=== PATIENT | male | born 1965 | race Caucasian/White ===

== ENCOUNTER 2017-08-29 16:35 | Day surgery (SDC) | payer BC, OTHER ==
[2017-08-29] MEDS ORDERED: Sodium Chloride 0.9% 10 ML Syringe FLUSH PRN (16:50)
[2017-08-29] MEDS ORDERED: Sodium Chloride 0.9% 1,000 ML IV STA (16:52)
--- NOTE | 2017-08-29 16:56 | EDM.PDOC ---
ED HPI GENERAL MEDICAL PROBLEM - General Stated Complaint: POSSIBLE RUPTURED HERNIA Time Seen by Provider: 08/29/17 16:35 Source of Information: Reports: Patient, EMS Notes Reviewed, Family History Limitations: Reports: No Limitations - History of Present Illness INITIAL COMMENTS - FREE TEXT/NARRATIVE: 51 y.o.w.m -morbid obese, came to the ed with his SO due to abd, wall pain, H/O umbilical hernia. Pt is extreme. Pt was seen by a surgeon in the past for some. However, the pain got suddenly worse today. any movement hurts. No N/V/D.BP 116/ 76 Pulse ox 96% on RA pulse 81 RR 20 Temp 36.8. Pt was signed out to Dr. Miramontes at [address] results Onset Date: 08/29/17 Onset Time: 06:00 Duration: Hour(s): Location: Reports: Abdomen Quality: Reports: Ache, Burning, Dull, Pressure, Throbbing Severity: Moderate Improves with: Reports: Rest Worsens with: Reports: Movement Context: Reports: Other (umbilical hernia) Associated Symptoms: Reports: Weakness Abdomen Pain Score (Numeric/FACES): 3 - Related Data Allergies Allergy/AdvReac Type Severity Reaction Status Date / Time No Known Allergies Allergy Verified 10/26/13 21:16 Home Meds: Home Meds Simvastatin [Zocor] 20 mg PO BEDTIME 01/28/16 [History] buPROPion [Wellbutrin SR] 150 mg PO DAILY 01/28/16 [History] metFORMIN [Glucophage] 850 mg PO BIDMEALS 01/28/16 [History] Hydrocodone/Acetaminophen [Hydrocodon-Acetaminophen 5-325] 1 - 2 tab PO Q4HR PRN #20 tablet 08/29/17 [Rx] Past Medical History HEENT History: Reports: Impaired Vision Cardiovascular History: Reports: High Cholesterol Respiratory History: Reports: Sleep Apnea Gastrointestinal History: Reports: Other (See Below) Other Gastrointestinal History: OCCASIONAL HEARTBURN Genitourinary History: Reports: None 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 Neurological History: Reports: Migraines Psychiatric History: Reports: Other (See Below) Other Psychiatric History: MEDICATES FOR IRRITABILITY Endocrine/Metabolic History: Reports: Diabetes, Type II, Obesity/BMI 30+ Hematologic History: Reports: None Immunologic History: Reports: None Oncologic (Cancer) History: Reports: None Dermatologic History: Reports: None - Infectious Disease History Infectious Disease History: Reports: Chicken Pox - Past Surgical History Head Surgeries/Procedures: Reports: Other (See Below) Social & Family History - Family History Other HEENT Family History: SEE HX ED ROS GENERAL - Review of Systems Review Of Systems: Unable To Obtain ED EXAM, GI/ABD - Physical Exam Exam: See Below Exam Limited By: No Limitations General Appearance: Obese (morbid obese) Eyes: Bilateral: Normal Appearance Ears: Normal External Exam Nose: Normal Inspection Throat/Mouth: Normal Inspection, Normal Lips Head: Atraumatic, Normocephalic Neck: Normal Inspection, Supple, Non-Tender Respiratory/Chest: No Respiratory Distress, Lungs Clear, Normal Breath Sounds Cardiovascular: Normal Peripheral Pulses, Regular Rate, Rhythm, No Edema GI/Abdominal Exam: Tender, Hernia (umbilical hernai), Other (Male) Exam: No Hernia (abd. wall hernia) Rectal (Males) Exam: Deferred Back Exam: Normal Inspection, Full Range of Motion Extremities: Normal Inspection, Normal Range of Motion, Non-Tender Neurological: Alert, Oriented, CN II-XII Intact, Normal Cognition, No Motor/ Sensory Deficits Psychiatric: Normal Affect Skin Exam: Warm, Dry, Intact, Normal Color Lymphatic: No Adenopathy Course - Vital Signs Text/Narrative:: 51 y.o.w.m -morbid obese, came to the ed with his SO due to abd, wall pain, H/O umbilical hernia. Pt is extreme. Pt was seen by a surgeon in the past for some. However, the pain got suddenly worse today. any movement hurts. No N/V/D.BP 116/ 76 Pulse ox 96% on RA pulse 81 RR 20 Temp 36.8. Pt was signed out to Dr. Miramontes at [address] results Imaging: Umbilical Fat hernia Labs: WBC 14.2 H/H Nl GFR > 60 Na/K nl Impression: Umbilical Fat hernia, Morbid obesity Please Dr. Miramontes's note Last Recorded V/S: Last Vital Signs Temp 36.5 C 08/30/17 01:20 Pulse 78 08/30/17 01:20 Resp 16 08/30/17 01:20 BP 118/70 08/30/17 01:20 Pulse Ox 96 08/30/17 01:20 - Orders/Labs/Meds Labs: Laboratory Tests 08/29/17 08/29/17 Range/Units 17:05 17:05 WBC 14.2 H (4.5-12.0) X10-3/uL RBC 5.36 (4.30-5.75) x10(6)uL Hgb 15.2 (11.5-15.5) g/dL Hct 45.7 (30.0-51.3) % MCV 85.4 (80-96) fL MCH 28.3 (27.7-33.6) pg MCHC 33.2 (32.2-35.4) g/dL RDW 12.7 (11.5-15.5) % Plt Count 262 (125-369) X10(3)uL MPV 8.5 (7.4-10.4) fL Neut % (Auto) 71.0 (46-82) % Lymph % (Auto) 20.7 (13-37) % Frontier % (Auto) 7.1 (4-12) % Eos % (Auto) 1 (1.0-5.0) % Baso % (Auto) 0 (0-2) % Neut # (Auto) 10.2 H (1.6-8.3) # Lymph # (Auto) 2.9 (0.6-5.0) # Frontier # (Auto) 1.0 (0.0-1.3) # Eos # (Auto) 0.1 (0.0-0.8) # Baso # (Auto) 0.0 (0.0-0.2) # Sodium 136 (135-145) mmol/L Potassium 3.8 (3.5-5.3) mmol/L Chloride 100 (100-110) mmol/L Carbon Dioxide 24 (21-32) mmol/L BUN 27 H (7-18) mg/dL Creatinine 1.0 (0.70-1.30) mg/dL Est Cr Clr Drug Dosing TNP Estimated GFR (MDRD) > 60 (>60) BUN/Creatinine Ratio 27.0 H (9-20) Glucose 131 H (80-116) mg/dL Calcium 9.5 (8.6-10.2) mg/dL Meds: Medications Discontinued Medications Generic Name Dose Route Start Last Admin Trade Name Freq PRN Reason Stop Dose Admin Hydrocodone Bitart/Acetaminophen 1 tab 08/29/17 23:41 08/30/17 00:04 [place] 325-5 Mg PO 1 tab Q4H PRN Administration Pain Hydrocodone Bitart/Acetaminophen 8 tab 08/29/17 21:58 [place] 325-5 Mg PO 08/29/17 21:59 .STK-MED ONE Bupivacaine HCl 20 ml 08/29/17 20:47 08/29/17 20:47 Marcaine 0.5% INJECT 08/29/17 20:48 20 ml .STK-MED ONE Administration Cefazolin Sodium 3 gm 08/29/17 20:20 Ancef IV 08/29/17 20:21 .STK-MED ONE Diatrizoate Meglum/Diatrizoate Sod 30 ml 08/29/17 17:45 08/29/17 17:52 Gastrografin 37% PO 30 ml . DIRECTED MIGUE Administration Fentanyl 200 mcg 08/29/17 20:20 Sublimaze IV 08/29/17 20:21 .STK-MED ONE Glycopyrrolate 0.4 mg 08/29/17 20:20 Robinul IV 08/29/17 20:21 .STK-MED ONE Hydromorphone HCl 1 mg 08/29/17 17:19 08/29/17 17:39 Dilaudid IVPUSH 08/29/17 17:20 1 mg ONETIME ONE Administration Sodium Chloride 1,000 mls @ 125 mls/hr 08/29/17 16:52 08/29/17 17:15 Normal Saline IV 08/30/17 00:51 125 mls/hr ASDIRECTED STA Administration Lactated Ringer's 1,000 mls @ as directed 08/29/17 20:20 Ringers, Lactated IV 08/29/17 20:21 .STK-MED ONE Iopamidol 150 ml 08/29/17 17:42 08/29/17 17:52 Isovue-370 (76%) IV 08/29/17 17:43 150 ml ONETIME ONE Administration Ketorolac Tromethamine 30 mg 08/29/17 20:20 Toradol IVPUSH 08/29/17 20:21 .STK-MED ONE Midazolam HCl 2 mg 08/29/17 20:20 Versed 1 Mg/Ml IV 08/29/17 20:21 .STK-MED ONE Neostigmine Methylsulfate 3 mg 08/29/17 20:20 Neostigmine Methylsulfate IVPUSH 08/29/17 20:21 .STK-MED ONE Ondansetron HCl 4 mg 08/29/17 20:20 Zofran IVPUSH 08/29/17 20:21 .STK-MED ONE Propofol 200 mg 08/29/17 20:20 Diprivan 20 Ml IV 08/29/17 20:21 .STK-MED ONE Rocuronium Rifton 50 mg 08/29/17 20:20 Zemuron IV 08/29/17 20:21 .STK-MED ONE Sodium Chloride 10 ml 08/29/17 16:50 Saline Flush FLUSH ASDIRECTED PRN Keep Vein Open Succinylcholine Chloride 120 mg 08/29/17 20:20 Quelicin IV 08/29/17 20:21 .STK-MED ONE Departure - Departure Time of Disposition: 19:00 Disposition: Admitted As Inpatient 66 Condition: Fair Clinical Impression: Umbilical hernia - Discharge Information
[2017-08-29] MEDS ORDERED: HYDROmorphone 2 MG/ML SDV IVPUSH ONE (17:19)
[2017-08-29] MEDS ORDERED: Iopamidol 755 MG/ML 150 ML Bottle IV ONE (17:42)
[2017-08-29] MEDS ORDERED: Diatrizoate Meglumine/Diatrizoate Sodium 37% 30 ML Bottle PO SCH (17:45)
[2017-08-29] MEDS ORDERED: Ondansetron 4 MG/2 ML SDV IVPUSH ONE (20:20)
[2017-08-29] MEDS ORDERED: fentaNYL 100 MCG/2 ML SDV IV ONE (20:20)
[2017-08-29] MEDS ORDERED: Succinylcholine 200 MG/10 ML MDV IV ONE (20:20)
[2017-08-29] MEDS ORDERED: Neostigmine Methylsulfate 10 MG/10 ML MDV IVPUSH ONE (20:20)
[2017-08-29] MEDS ORDERED: Lactated Ringers 1,000 ML IV ONE (20:20)
[2017-08-29] MEDS ORDERED: Propofol 200 MG/20 ML SDV IV ONE (20:20)
[2017-08-29] MEDS ORDERED: Glycopyrrolate 0.2 MG/ML 5 ML MDV IV ONE (20:20)
[2017-08-29] MEDS ORDERED: Ketorolac 30 MG/ML SDV IVPUSH ONE (20:20)
[2017-08-29] MEDS ORDERED: ceFAZolin 1 GM Vial IV ONE (20:20)
[2017-08-29] MEDS ORDERED: Midazolam 1 MG/ML 2 ML SDV IV ONE (20:20)
[2017-08-29] MEDS ORDERED: Rocuronium 100 MG/10 ML MDV IV ONE (20:20)
[2017-08-29] MEDS ORDERED: Bupivacaine 0.5% 30 ML SDV INJECT ONE (20:47)
--- NOTE | 2017-08-29 21:12 | HP ---
ADMISSION DATE: 08/29/2017 EMERGENCY ROOM CONSULT HISTORY AND PHYSICAL HISTORY OF PRESENT ILLNESS: This 51-year-old male presented to the emergency room after developing abdominal pain at approximately 1500 hours today while at work. He noted pain in the area of the umbilicus. It had continued to be a constant gradually increasing pain, which prompted his presentation. The patient has for several years noted a bulge at the level of his umbilicus, although it has not been symptomatic before this. The pain that he experiences today is in this bulge, which he thinks is perhaps a little larger and is definitely more firm than it normally is. The patient has not had any nausea or vomiting. He has been evaluated in the emergency room, with laboratory studies showing a slightly elevated serum white blood cell count of 14,200, normal hemoglobin, normal sodium and potassium, and a glucose of 131. The patient also underwent a CT scan of the abdomen. This was interpreted as showing an umbilical hernia containing fat, with no indication of bowel involvement. Diverticulosis and a small renal stone were also noted. PAST MEDICAL HISTORY: Shows no previous surgery, specifically no previous abdominal surgery. He does carry diagnoses of diabetes and hyperlipidemia. CURRENT MEDICATIONS: Include: 1. Metformin 850 mg b.i.d. 2. Wellbutrin 150 mg daily. 3. Zocor 20 mg daily. HABITS: He does not smoke and has not used alcohol to excess. FAMILY HISTORY: Negative for known anesthetic complications or bleeding disorders. SOCIAL HISTORY: The patient is . 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 SYSTEM REVIEW: He has noticed a slight increase in phlegm over the last week but generally has not noted any severe cough, cold, or sore throat symptoms. He has no chest pain or palpitations. He says his appetite has recently been good. He has been trying to lose weight, estimating a loss of 30 to 40 pounds in the last few months. He denies any recent extremity swelling or unusual pain. PHYSICAL EXAMINATION: VITAL SIGNS: Weight is 294 pounds, blood pressure is 140/90, and pulse is 98. GENERAL: The patient is a somewhat ill-appearing male, although he is in no acute distress. HEAD: Normocephalic. EYES: No scleral icterus. NECK: No cervical masses. HEART: Regular, without murmur. LUNGS: Clear. Breath sounds are equal. There is no wheezing. ABDOMEN: Soft. He has a moderate-sized bulge at the level of the umbilicus, which is firm and tender to even light palpation. No other abdominal masses are noted. The patient does have a mild degree of direct tenderness in the right upper quadrant. There is no guarding. EXTREMITIES: Show no calf tenderness or ankle edema. IMPRESSION: 1. Incarcerated umbilical hernia. 2. Diabetes. 3. Hyperlipidemia. 4. Obesity. RECOMMENDATIONS: I advised urgent surgical exploration for a repair of his incarcerated umbilical hernia. I discussed this carefully with the patient and his ; reviewing the indications, risks, and possible complications. We discussed the possible need for use of mesh in the repair, and we also discussed the expected postop work restrictions. Alternatives to immediate surgery were also reviewed. His questions were answered. He appears to understand, and he agrees to proceed. /[id number] CARY/JAKE
[2017-08-29] MEDS ORDERED: Acetaminophen/HYDROcodone 325-5 MG Tab PO ONE (21:58)
--- NOTE | 2017-08-29 22:04 | PCM.OPNOTE ---
- General Post-Op/Procedure Note Date of Surgery/Procedure: 08/29/17 Operative Procedure(s): Repair of Incarcerated Umbilical Hernia with partial Omentectomy Findings: Moderate sized umbilical hernia with large amount of omentum incarcerated although not ischemic Pre Op Diagnosis: Incarcerated Umbilical Hernia Post-Op Diagnosis: Same Anesthesia Technique: General ET Tube Primary Surgeon: Jitendra Del Castillo Pathology: Umbilical hernia sac and contents Output, Urine Amount: 0 EBL in mLs: 25 Complications: None Condition: Good
--- NOTE | 2017-08-29 23:08 | OR ---
DATE OF OPERATION: 08/29/2017 SURGEON: Jitendra Del Castillo MD PREOPERATIVE DIAGNOSIS: Incarcerated umbilical hernia. POSTOPERATIVE DIAGNOSIS: Incarcerated umbilical hernia. OPERATIONS PERFORMED: 1. Repair of an incarcerated umbilical hernia. 2. Partial omentectomy. INDICATIONS FOR SURGERY: This 51-year-old male presented to the emergency room with a several-hour history of progressive pain at the level of the umbilicus. Physical findings and CT scan were consistent with an incarcerated umbilical hernia, and he comes for an urgent surgical repair. FINDINGS: The patient had a moderate-sized umbilical hernia defect approximately 4 cm in length. Through this was incarcerated a large amount of omentum. There were some adhesions of the omentum to the hernia sac, but the omentum was not ischemic and, other than being mildly congested, appeared normal. The surrounding muscle tissue appeared solid. PROCEDURE IN DETAIL: The patient was taken to the operating room. He was given general endotracheal anesthesia, and the abdomen was sterilely prepped and draped. After infiltrating the skin with Marcaine, a curvilinear transverse incision was made just below the umbilicus. Dissection proceeded down onto the hernia sac, and using careful blunt and sharp dissection, the hernia sac was from the surrounding subcutaneous tissue and also dissected off the overlying skin. The hernia sac was opened and found to contain omental fat. This was exposed down to the level of the neck of the hernia. There was a large amount of omentum protruding through the defect, which would not readily be able to be reduced, and the omentum that was protruding through the hernia sac was then amputated above multiple clamps, with ties of 0 Vicryl used to control the vascular pedicles. The excised portion of the omentum was removed, and the small remaining bit of omentum was able to be reduced after freeing some adhesions to the peritoneum. The hernia sac was then excised circumferentially at the level of the fascia with cautery. The fascial edge was exposed and the area carefully examined, finding no other defects in this region and good- quality fascia surrounding the hernia defect. The hernia defect was then closed in a transverse orientation using interrupted #1 Prolene in a Smead-Herrera suturing technique. This then created a secure and complete closure of the hernia. Examination showed no sign of any complication. The wound was then irrigated with saline, and the skin of the umbilicus was tacked down to the underlying fascia with 2-0 Vicryl. This was then used to reapproximate the subcutaneous tissue, and the skin was closed with a running 4-0 Vicryl subcuticular stitch, Steri-Strips, and Benzoin. Antibiotic ointment and a sterile pressure dressing were placed. The patient was then awakened, extubated, and taken from the operating room in satisfactory condition. ESTIMATED BLOOD LOSS: 25 mL. COMPLICATIONS: None. PROGNOSIS: Good. /[id number] CARY/MODL
[2017-08-29] MEDS ORDERED: Acetaminophen/HYDROcodone 325-5 MG Tab PO PRN (23:41)
[2017-08-30 02:22] VITALS: BP 118/70
--- NOTE | 2017-08-31 12:36 | PCM.SN ---
- Free Text/Narrative Note: Late entry: 08/29/17 Fentanyl 100mcg IV at 2021 100mg mcg given at 2034 and versed 2mg IV given at 2021.
== END 2017-08-30 01:40 | disposition home or self-care (01) ==
LOC: FB.ED 16:35 → FB.SDS 19:51 → FB.MS 22:48 → FB.SDS 08-30 01:40
PROVIDERS: ATTEND Surgery
DX: K42.0 Umbilical hernia with obstruction, without gangrene (principal); E11.9 Type 2 diabetes mellitus without complications; E66.9 Obesity, unspecified; E78.5 Hyperlipidemia, unspecified; Z79.84 Long term (current) use of oral hypoglycemic drugs; Z79.899 Other long term (current) drug therapy
CPT/HCPCS: 36415; 49587; 74177; 80048; 85025; 88302; 96361; 96374; 99284; A9270; J0330; J0690; J1170; J1885; J2250; J2405; J2704; J2710; J3010; J7030; J7120; Q9963; Q9967

== ENCOUNTER 2018-09-19 08:52 | Day surgery (SDC) | payer OTHER ==
[2018-09-19] MEDS ORDERED: Lidocaine 1% PF 2 ML SDV INJECT ONE (08:53)
[2018-09-19] MEDS ORDERED: Propofol 200 MG/20 ML SDV IV ONE (08:53)
[2018-09-19] MEDS ORDERED: Sodium Chloride 0.9% 10 ML Syringe FLUSH PRN (09:00)
[2018-09-19] MEDS ORDERED: Lactated Ringers 1,000 ML IV SCH (09:00)
[2018-09-19] MEDS ORDERED: Simethicone Drops 40 MG/0.6 ML 30 ML Bottle ONE (10:45)
--- NOTE | 2018-09-19 11:11 | PCM.OPNOTE ---
- General Post-Op/Procedure Note Date of Surgery/Procedure: 09/19/18 Operative Procedure(s): c scope with hot loop snare Findings: ascending and descending colon polyp Pre Op Diagnosis: hx of colon polyps Post-Op Diagnosis: colon polyp x 2 Anesthesia Technique: MAC Primary Surgeon: Suraj Ceron Anesthesia Provider: Virgilio Vincent Pathology: colon polyp x 2 Complications: None Condition: Stable Free Text/Narrative:: see dictation
[2018-09-19 11:51] VITALS: BP 134/70; PULSE 73
--- NOTE | 2018-09-19 13:52 | OR ---
DATE OF OPERATION: 09/19/2018 SURGEON: Suraj Ceron MD PROCEDURE PERFORMED: Colonoscopy with hot loop snare biopsy. PREOPERATIVE DIAGNOSIS: Personal history of colon polyps. POSTOPERATIVE DIAGNOSIS: Polyp of the ascending and descending colon. INDICATIONS FOR PROCEDURE: This is a 53-year-old white male who presents for followup scope. Three years ago, he had a colonoscopy. Due to the findings, we recommended a followup scope at this time. DESCRIPTION OF OPERATION: After an excellent IV sedation was administered, digital rectal exam was performed. No marked abnormality was noted. Flexible colonoscope was inserted and advanced to cecum. Prep was excellent. The following findings were noted: Ascending colon: Polypoid lesion, biopsied with the hot loop snare and retrieved. Transverse colon: Unremarkable. Descending colon: Polypoid lesion, biopsied with hot loop snare and retrieved. Sigmoid And Rectum: Unremarkable. Results by letter. /[id number] /MODL
== END 2018-09-19 11:41 | disposition home or self-care (01) ==
LOC: FB.SDS 08:52
PROVIDERS: ATTEND Surgery
DX: Z12.11 Encounter for screening for malignant neoplasm of colon (principal); D12.2 Benign neoplasm of ascending colon; D12.4 Benign neoplasm of descending colon; E11.9 Type 2 diabetes mellitus without complications; E78.5 Hyperlipidemia, unspecified; G43.909 Migraine, unspecified, not intractable, without status migrainosus; E66.01 Morbid (severe) obesity due to excess calories; Z68.42 Body mass index [BMI] 45.0-49.9, adult; Z86.010 Personal history of colon polyps; Z79.84 Long term (current) use of oral hypoglycemic drugs; Z79.899 Other long term (current) drug therapy
CPT/HCPCS: 45385; 82962; 88305; A9270; J2001; J2704; J7120

== ENCOUNTER 2023-04-09 20:05 | Emergency (ER) | payer BC, OTHER ==
[2023-04-09] MEDS ORDERED: Sodium Chloride 0.9% 10 ML Syringe FLUSH PRN (20:10)
[2023-04-09 20:20] LABS: BASOPHILS PERCENT AUTO 0.4 % (0.3-3.8); EOSINOPHILS ABSOLUTE AUTO 0.1 x10-3/uL (0.0-0.6); EOSINOPHILS PERCENT AUTO 1.1 % (0.1-6.8); HEMATOCRIT 45.3 % (38.3-50.1); HEMOGLOBIN 15.3 g/dL (12.9-17.7); LYMPHOCYTES ABSOLUTE AUTO 2.2 x10-3/uL (0.5-4.5); LYMPHOCYTES PERCENT AUTO 21.8 % (15.8-45.3); MEAN CORPUSCULAR HEMOGLOBIN 29.6 pg (27.0-33.3); MEAN CORPUSCULAR HGB CONC 33.7 g/dL (28.7-35.3); MEAN CORPUSCULAR VOLUME 87.6 fL (80.8-98.7); MEAN PLATELET VOLUME 8.1 fL (6.7-11.0); MONOCYTES PERCENT AUTO 9.5 % (5.5-15.2); NEUTROPHILS ABSOLUTE AUTO 6.9 x10-3/uL (1.7-6.9); NEUTROPHILS PERCENT AUTO 67.2 % (40.3-71.8); PLATELET COUNT,PLT 244 x10(3)uL (117-477); RED BLOOD CELL COUNT 5.17 x10(6)uL (3.90-5.90); RED CELL DISTRIBUTION WIDTH 14.5 % (12.4-15.0); WHITE BLOOD CELL COUNT,WBC 10.2 x10-3/uL (3.2-10.1)
[2023-04-09 20:22] LABS: BLOOD UREA NITROGEN,BUN 18 mg/dL (7-18); BUN/CREATININE RATIO 16.4 (9-20); CALCIUM 9.4 mg/dL (8.6-10.2); CARBON DIOXIDE,CO2 23 mmol/L (21-32); CHLORIDE,CL 104 mmol/L (100-110); CREATININE 1.1 mg/dL (0.70-1.30); ESTIMATED GFR 78 mL/min (>60); GLUCOSE RANDOM 110 mg/dL (80-116); POTASSIUM,K 3.5 mmol/L (3.5-5.3); SODIUM,NA 140 mmol/L (135-145)
[2023-04-09 20:28] LABS: A/G RATIO 1.1; ALANINE AMINOTRANSFERASE,ALT 36 U/L (12-36); ALBUMIN 3.6 g/dL (3.5-5.2); ALKALINE PHOSPHATASE 93 IU/L (56-112); ASPARTATE AMNIOTRANSFERASE,AST 22 IU/L (5-25); BILIRUBIN TOTAL 0.8 mg/dL (0.1-1.3); PROTEIN TOTAL,TP 6.8 g/dL (6.0-8.0)
[2023-04-09 20:30] LABS: INR 0.99 (1.00-1.24); PROTHROMBIN TIME 10.3 sec (9.0-11.1); PTT,PARTIAL THROMBOPLSTIN TIME 26.6 SECONDS (24.4-33.2)
[2023-04-09] MEDS: Tenecteplase 50 MG Kit IV STA (21:19)
[2023-04-09 21:33] VITALS: BP 134/80; PULSE 78
== END 2023-04-09 21:33 ==
LOC: FB.ED 20:05
DX: R42 Dizziness and giddiness (principal); I63.9 Cerebral infarction, unspecified; G44.019 Episodic cluster headache, not intractable; E11.9 Type 2 diabetes mellitus without complications; E78.5 Hyperlipidemia, unspecified; E78.00 Pure hypercholesterolemia, unspecified; E66.9 Obesity, unspecified; Z79.84 Long term (current) use of oral hypoglycemic drugs; Z79.899 Other long term (current) drug therapy
CPT/HCPCS: 36415; 37195; 70450; 80053; 84484; 85025; 85610; 85730; 93005; 93010; 99285; J3101

== ENCOUNTER 2023-06-29 03:49 | Emergency (ER) | payer BC ==
[2023-06-29 04:12] LABS: BASOPHILS ABSOLUTE AUTO 0.1 x10-3/uL (0.0-0.3); BASOPHILS PERCENT AUTO 0.7 % (0.3-3.8); EOSINOPHILS ABSOLUTE AUTO 0.2 x10-3/uL (0.0-0.6); EOSINOPHILS PERCENT AUTO 1.4 % (0.1-6.8); HEMATOCRIT 43.7 % (38.3-50.1); HEMOGLOBIN 14.1 g/dL (12.9-17.7); LYMPHOCYTES ABSOLUTE AUTO 2.7 x10-3/uL (0.5-4.5); LYMPHOCYTES PERCENT AUTO 22.6 % (15.8-45.3); MEAN CORPUSCULAR HEMOGLOBIN 29.1 pg (27.0-33.3); MEAN CORPUSCULAR HGB CONC 32.2 g/dL (28.7-35.3); MEAN CORPUSCULAR VOLUME 90.3 fL (80.8-98.7); MEAN PLATELET VOLUME 7.9 fL (6.7-11.0); MONOCYTES ABSOLUTE AUTO 1.2 x10-3/uL (0.0-1.2); MONOCYTES PERCENT AUTO 9.9 % (5.5-15.2); NEUTROPHILS ABSOLUTE AUTO 7.7 x10-3/uL (1.7-6.9); NEUTROPHILS PERCENT AUTO 65.4 % (40.3-71.8); PLATELET COUNT,PLT 225 x10(3)uL (117-477); RED BLOOD CELL COUNT 4.84 x10(6)uL (3.90-5.90); RED CELL DISTRIBUTION WIDTH 14.4 % (12.4-15.0); WHITE BLOOD CELL COUNT,WBC 11.8 x10-3/uL (3.2-10.1)
[2023-06-29] MEDS: Ketorolac 30 MG/ML SDV IVPUSH ONE (04:17)
[2023-06-29] MEDS: Dexamethasone 4 MG/ML SDV IVPUSH ONE (04:18)
[2023-06-29] MEDS: diphenhydrAMINE 50 MG/ML SDV IVPUSH ONE (04:20)
[2023-06-29] MEDS: SUMAtriptan 6 MG/0.5 ML SDV SUBCUT ONE (04:27)
[2023-06-29 04:28] LABS: TROPONIN I 8.9 pg/mL (4.0-60.3)
[2023-06-29 04:35] LABS: ALANINE AMINOTRANSFERASE,ALT 31 U/L (12-36); ALBUMIN 3.4 g/dL (3.5-5.2); ALKALINE PHOSPHATASE 89 IU/L (56-112); ASPARTATE AMNIOTRANSFERASE,AST 21 IU/L (5-25); BILIRUBIN TOTAL 0.7 mg/dL (0.1-1.3); BLOOD UREA NITROGEN,BUN 19 mg/dL (7-18); C-REACTIVE PROTEIN < 0.50 mg/dL (<0.50); CARBON DIOXIDE,CO2 26 mmol/L (21-32); CHLORIDE,CL 106 mmol/L (100-110); EST CRCL DRUG DOSING (CG) 89.46 mL/min; ESTIMATED GFR 88 mL/min (>60); GLUCOSE RANDOM 78 mg/dL (80-116); POTASSIUM,K 3.6 mmol/L (3.5-5.3); PROTEIN TOTAL,TP 6.8 g/dL (6.0-8.0); SODIUM,NA 141 mmol/L (135-145)
[2023-06-29] MEDS: Dextrose 5%-Lactated Ringers 1,000 ML IV SCH (04:59)
[2023-06-29 09:55] VITALS: BP 111/71; PULSE 84
== END 2023-06-29 09:33 | disposition home or self-care (01) ==
LOC: FB.ED 03:49
DX: G43.909 Migraine, unspecified, not intractable, without status migrainosus (principal); R07.89 Other chest pain; E78.00 Pure hypercholesterolemia, unspecified; E11.9 Type 2 diabetes mellitus without complications; Z79.84 Long term (current) use of oral hypoglycemic drugs; Z79.899 Other long term (current) drug therapy
CPT/HCPCS: 36415; 80053; 83605; 84484; 85025; 86140; 93005; 93010; 96361; 96374; 96375; 99283; 99285-25; J1100; J1200; J1885; J7121

== ENCOUNTER 2024-01-05 07:46 | Day surgery (SDC) | payer BC ==
[~2024-01-05 07:46] MED LIST: Sodium Chloride 0.9% 10 ML Syringe FLUSH PRN
[2024-01-05] MEDS ORDERED: Lidocaine 2% 5 ML SDV IVPUSH ONE (07:47)
[2024-01-05] MEDS ORDERED: Propofol 200 MG/20 ML SDV IV ONE (07:47)
[2024-01-05 08:43] VITALS: BP 127/78; PULSE 79
[2024-01-05] MEDS: Lactated Ringers 1,000 ML IV SCH (08:54)
[2024-01-05] MEDS: Simethicone Drops 40 MG/0.6 ML 30 ML Bottle ONE (09:27)
== END 2024-01-05 11:08 | disposition home or self-care (01) ==
LOC: FB.SDS 07:46
PROVIDERS: ATTEND Surgery
DX: Z12.11 Encounter for screening for malignant neoplasm of colon (principal); D12.6 Benign neoplasm of colon, unspecified; K51.40 Inflammatory polyps of colon without complications; Z86.0100 Personal history of colon polyps, unspecified; J45.909 Unspecified asthma, uncomplicated; E11.9 Type 2 diabetes mellitus without complications; E78.5 Hyperlipidemia, unspecified; Z80.0 Family history of malignant neoplasm of digestive organs
CPT/HCPCS: 00811; 45385; 82947; 88305; A9270; J2704; J7120